=== PATIENT | male | born 1985 | race African-American/Black ===

== ENCOUNTER 2018-04-26 15:35 | Inpatient (IN) | payer OTHER ==
--- NOTE | 2018-04-26 16:09 | RAD ---
PORTABLE CHEST ONE VIEW: 04/26/18 at 4 p.m. HISTORY: Nausea, vomiting, hyperglycemia. FINDINGS: Comparison is made with exam of 12/05/15. The heart size is normal. The lungs are expanded without focal areas of consolidation, pneumothoraces , marianela pulmonary edema or pleural effusions. IMPRESSION: No acute process. POS: [facility]
[2018-04-26 16:47] LABS: Anion Gap 37 mmol/L (10-20); BUN (Urea Nitrogen) 43 mg/dL (8.9-20.6); Calc. Creatinine Clearance 0 mL/min (70-130); Calcium 10.2 mg/dL (7.8-10.44); Carbon Dioxide 18 mmol/L (22-29); Chloride 75 mmol/L (98-107); Estimated GFR-MDRD 24; Potassium 4.9 mmol/L (3.5-5.1); Sodium 125 mmol/L (136-145)
[2018-04-26 16:54] LABS: Glucose 1275 mg/dL (70-105)
[2018-04-26 16:59] LABS: Osmolality, Serum 367 mOsm/kg (280-295)
[2018-04-26] MEDS ORDERED: Insulin Regular 100 units/100 ml in NS IVPB SCH (18:00)
[2018-04-26] MEDS ORDERED: NS 0.9% w/ 20 MEQ KCL 1,000 ML IV SCH (18:00)
[2018-04-26 20:39] LABS: Anion Gap 30 mmol/L (10-20); BUN (Urea Nitrogen) 44 mg/dL (8.9-20.6); Calc. Creatinine Clearance 0 mL/min (70-130); Carbon Dioxide 22 mmol/L (22-29); Chloride 80 mmol/L (98-107); Estimated GFR-MDRD 26; Potassium 3.8 mmol/L (3.5-5.1); Sodium 128 mmol/L (136-145)
[2018-04-26 20:41] LABS: Glucose 1072 mg/dL (70-105); Troponin I Less than 0.010 ng/mL (< 0.028)
[2018-04-26] MEDS ORDERED: Dextrose 5% in Water 1,000 ML IV PRN (21:24)
[2018-04-26] MEDS ORDERED: Dextrose 50% Abboject 50 ML SYRINGE IVP PRN (21:24)
[2018-04-26] MEDS ORDERED: NS 0.9% w/ 20 MEQ KCL 1,000 ML IV PRN (21:37)
[2018-04-26] MEDS ORDERED: Sodium Chloride 0.9% 1,000 ML IV PRN ×4 (21:37)
[2018-04-26] MEDS ORDERED: Ondansetron ODT 4 MG TAB PO PRN (21:37)
[2018-04-26] MEDS ORDERED: hydrALAZINE 20 MG/ML VIAL SLOW IVP PRN (21:37)
[2018-04-26] MEDS ORDERED: Dextrose 5 %-0.45 % NaCl 1,000 ML IV PRN (21:37)
[2018-04-26] MEDS ORDERED: CCU Electrolyte Replacement 1 EACH IVPB SCH (21:37)
[2018-04-26] MEDS ORDERED: D5 1/2 NS w/20 mEq KCL 1,000 ML IV PRN (21:37)
[2018-04-26] MEDS ORDERED: Potassium Chloride 40 MEQ in Premix Bag 1 BAG IVPB PRN (21:51)
[2018-04-26] MEDS ORDERED: Potassium Phosphate 15 MMOL in Sodium Chloride 0.9% 250 ML 250 ML IV PRN (21:51)
[2018-04-26] MEDS ORDERED: Magnesium Oxide 400 MG TAB PO PRN ×2 (21:51)
[2018-04-26] MEDS ORDERED: Magnesium 2 GM/NS 0.9% 100 ML 2 GM in Premix Bag 1 BAG IVPB PRN (21:51)
[2018-04-26] MEDS ORDERED: Potassium Phosphate 12 MMOL in Sodium Chloride 0.9% 250 ML 250 ML IV PRN (21:51)
[2018-04-26] MEDS ORDERED: Potassium Chloride 40 MEQ in Sodium Chloride 0.9% 250 ML 250 ML IVPB PRN (21:51)
[2018-04-26] MEDS ORDERED: Potassium Chloride 20 MEQ TAB PO PRN (21:51)
[2018-04-26] MEDS ORDERED: CCU ELECTROLYTE REPLACEMENT PROTOCOL FS PRN (21:51)
[2018-04-26] MEDS ORDERED: Potassium Phosphate 9 MMOL in Sodium Chloride 0.9% 100 ML IVPB PRN (21:51)
[2018-04-26] MEDS ORDERED: Famotidine/PF 20 mg/2ml Vial SLOW IVP SCH (22:00)
[2018-04-26 22:35] LABS: Anion Gap 35 mmol/L (10-20); BUN (Urea Nitrogen) 44 mg/dL (8.9-20.6); Calc. Creatinine Clearance 0 mL/min (70-130); Calcium 9.8 mg/dL (7.8-10.44); Carbon Dioxide 16 mmol/L (22-29); Chloride 83 mmol/L (98-107); Estimated GFR-MDRD 27; Potassium 4.9 mmol/L (3.5-5.1); Sodium 129 mmol/L (136-145)
[2018-04-26 22:40] LABS: Glucose 928 mg/dL (70-105)
[2018-04-26 22:47] LABS: Troponin I Less than 0.010 ng/mL (< 0.028)
[2018-04-26 23:14] LABS: Base Excess (BEa) 0.5 mEq/L (-2.0 to +3.0); CO2 Tension 44.7 mmHg (35.0-45.0); Calcium, Ionized 1.19 mmol/L (1.12-1.30); Carboxyhemoglobin (COHb) 1.3 gm% (0.0-3.0); Hemoglobin (Hb) 16.7 g/dL (14.0-18.0); O2 Tension (PaO2) 68.6 mmHg (80.0-100.0); Potassium - ABG Lab 3.55 mmol/L (3.70-5.30); pH, Arterial 7.38 (7.35-7.45)
[2018-04-26 23:18] LABS: ALV-art Gradient 25.255 (0-20); Puncture Site RRADIAL
[2018-04-27] MEDS: NS 0.9% w/ 20 MEQ KCL 1,000 ML IV PRN ×3 (00:36→08:59)
--- NOTE | 2018-04-27 00:44 | HP ---
PRIMARY CARE PROVIDER: Dr. Shirley Bianchi at [facility], [place], [place]. CHIEF COMPLAINT: Nausea, vomiting, and abdominal pain. HISTORY OF PRESENT ILLNESS: This is a 33-year-old male, who resides at [facility], nonambulatory with morbid obesity, presenting with nausea, vomiting, abdominal pain, and generalized weakness. The patient states he did notice some diarrhea over the last 3 to 4 days and was treated with oral medication without specific relief. The patient also admitted to abdominal pain with emesis that showed coffee-ground substance x1. Due to patient's comorbid status and persistent symptoms, the patient was evaluated including Accu-Cheks show a level over 1200. The patient denies any known history of diabetes mellitus or treatment for this in the past. The patient was noted to be admitted to [facility] in 2016 for lower extremity cellulitis with associated sepsis. However, review of electronic medical record shows no evidence of hyperglycemia during that visit. The patient states he has been compliant with his chronic medication regimen as his day is structured living in a [facility]. The patient states he is nonambulatory and needs 100% assistance with turning hygiene and meals. The patient denied any specific fever, chills, cough, or congestion. In the emergency room, the patient underwent general evaluation with screening metabolic survey showing glucose of 1275 with a creatinine of 3.53, serum osmolality of 367, and beta hydroxybutyrate level of 8.75. The patient was placed on IV fluids and initiated on a insulin infusion for hyperosmolar syndrome and likely DKA. PAST MEDICAL HISTORY: 1. Severe morbid obesity. 2. Chronic venous stasis and edema of the lower extremities. 3. History of sepsis. 4. Deconditioning and nonambulatory status. 5. Chronic normocytic anemia. PAST SURGICAL HISTORY: Reviewed and negative. CURRENT MEDICATIONS: 1. Spironolactone 50 mg p.o. daily. 2. BuSpar 10 mg p.o. b.i.d. 3. Fluoxetine 20 mg p.o. daily. 4. Lasix 60 mg p.o. b.i.d. 5. Magnesium oxide 400 mg p.o. b.i.d. 6. Metolazone 5 mg p.o. daily. 7. Potassium chloride 20 mEq p.o. b.i.d. 8. Synthroid 25 mcg p.o. daily. ALLERGIES: NO KNOWN DRUG ALLERGIES. FAMILY HISTORY: Positive for diabetes mellitus in patient's father. SOCIAL HISTORY: The patient resides at [facility] in [place], [place]. No current alcohol, tobacco, or illicit drug use. Nonambulatory status. REVIEW OF SYSTEMS: CONSTITUTIONAL: Negative for weight loss or gain, ability to conduct usual activities. SKIN: Negative for rash, itching. EYES: Negative for double vision, pain. ENT/MOUTH: Negative for nose bleeding, neck stiffness, pain, tenderness. CARDIOVASCULAR: Negative for palpitations, dyspnea on exertion, orthopnea. RESPIRATORY: Negative for shortness of breath, wheezing, cough, hemoptysis, fever or night sweats. GASTROINTESTINAL: Negative for poor appetite, abdominal pain, heartburn, nausea, vomiting, constipation, or diarrhea. GENITOURINARY: Negative for urgency, frequency, dysuria, nocturia. MUSCULOSKELETAL: Negative for pain, swelling. NEUROLOGIC/PSYCHIATRIC: Negative for anxiety, depression. ALLERGY/IMMUNOLOGIC: Negative for skin rash, bleeding tendency. Otherwise negative except as stated per HPI. PHYSICAL EXAMINATION: VITAL SIGNS: On admission, blood pressure 148/89, pulse 116, temperature 97.7 degrees Fahrenheit, respiratory rate 15, O2 saturation 95% on room air. GENERAL APPEARANCE: This is a morbidly obese, 33-year-old male, lethargic, but answers questions, in mild distress. HEENT: Pupils are equal, round, and reactive to light and accommodation. Extraocular muscles are intact. No scleral icterus. No conjunctival injection. Nares patent. OP is clear. Oral mucosa dry appearing. NECK: Supple. No cervical adenopathy. No thyromegaly. No carotid bruits. No JVD appreciated. Cervical spine with full active and passive range of motion. No meningeal signs appreciated. CHEST: Diminished breath sounds in the bases bilaterally. CARDIOVASCULAR: S1 and S2 without noted murmur, rub, or gallop. Positive tachycardia. ABDOMEN: Obese. Landmarks are difficult to palpate due to patient's body habitus. No rebound or guarding noted. No gross focal mass appreciated. EXTREMITIES: Bilateral nonpitting edema with chronic lymphedema and leathery changes to the skin. Pulses palpable at the dorsalis pedis and posterior tibial arteries. NEUROLOGIC: Cranial nerves 2 through 12 were grossly intact. No focal or lateralizing signs appreciated. The patient is not observed ambulatory. Answers questions appropriately. PERTINENT LAB AND X-RAY FINDINGS: Sodium 125, potassium 4.9, chloride 75, CO2 of 18, anion gap 37, BUN 43, creatinine 3.53, estimated GFR 24, glucose 1275. Serum osmolality 367, calcium 10.2. Troponin I 0.010. Beta-hydroxybutyrate level 8.75. CBC showed white blood cell count of 7.5, hemoglobin 16, hematocrit 51, platelet count 333 with 83% neutrophils. Gastric Hemoccult positive x1. Urinalysis showed greater than 1000 of glucose, 40 ketones, specific gravity less than 1.005. EKG dated 04/26/2018, by my interpretation shows sinus tachycardia with heart rates in the 110s. Normal R-wave progression noted in precordial leads. Normal axis. No acute ST-T wave changes appreciated. ASSESSMENT AND PLAN: 1. Diabetic ketoacidosis. The patient will be admitted to the critical care unit. We will continue diabetic ketoacidosis protocol. Continue aggressive IV fluid replacement and hydration. Continue insulin infusion and monitor serial Accu-Cheks q.1 hour per protocol. No current evidence to suggest underlying infectious process. Check A1c level in the a.m. 2. Acute kidney injury. Suspect multifactorial given the patient's presentation and severe dehydration. We will continue IV fluids as outlined previously in #1. Avoid nephrotoxic agents and limit contrast exposure. Repeat creatinine in the a.m. 3. Hyponatremia. Suspect this is secondary to pseudohyponatremia in the context of severe hyperglycemia. Continue normal saline infusion and repeat sodium level in the a.m. Anticipate correction with correction of hyperglycemia. 4. Severe morbid obesity. We will continue general supportive management. Low air loss mattress to prevent skin breakdown. Turning protocol. 5. Chronic lymphedema. Continue general supportive management with wound care consult for local skin care. 6. Prophylaxis. Lovenox 30 mg subcutaneously daily. Protonix 40 mg IV. Pepcid 20 mg IV q.12 hours. 7. Code status is full. Surrogate medical decision maker is patient's mother. Job ID: [id number]
[2018-04-27 01:18] VITALS: BMI 92.2
[2018-04-27 01:30] LABS: Glucose 813 mg/dL (70-105)
[2018-04-27 03:37] LABS: Hemoglobin A1c 12.8 % (4.0-6.0)
[2018-04-27 03:43] LABS: Anion Gap 27 mmol/L (10-20); BUN (Urea Nitrogen) 43 mg/dL (8.9-20.6); Calc. Creatinine Clearance 166 mL/min (70-130); Calcium 10.1 mg/dL (7.8-10.44); Carbon Dioxide 26 mmol/L (22-29); Chloride 88 mmol/L (98-107); Estimated GFR-MDRD 32; Potassium 3.8 mmol/L (3.5-5.1); Sodium 137 mmol/L (136-145)
[2018-04-27 03:48] LABS: Glucose 697 mg/dL (70-105)
[2018-04-27 05:42] LABS: Glucose 574 mg/dL (70-105)
[2018-04-27] MEDS: Enoxaparin Sodium 30 MG/0.3 ML SYRINGE SC SCH (08:34)
[2018-04-27 09:02] LABS: Anion Gap 21 mmol/L (10-20); BUN (Urea Nitrogen) 42 mg/dL (8.9-20.6); Calc. Creatinine Clearance 195 mL/min (70-130); Calcium 10.2 mg/dL (7.8-10.44); Carbon Dioxide 27 mmol/L (22-29); Chloride 97 mmol/L (98-107); Estimated GFR-MDRD 39; Glucose 359 mg/dL (70-105); Magnesium 2.8 mg/dL (1.6-2.6); Potassium 3.2 mmol/L (3.5-5.1); Sodium 142 mmol/L (136-145)
[2018-04-27 09:08] LABS: Phosphorus 1.1 mg/dL (2.3-4.7)
[2018-04-27 14:31] LABS: Anion Gap 19 mmol/L (10-20); BUN (Urea Nitrogen) 39 mg/dL (8.9-20.6); Calc. Creatinine Clearance 214 mL/min (70-130); Calcium 9.9 mg/dL (7.8-10.44); Carbon Dioxide 30 mmol/L (22-29); Chloride 98 mmol/L (98-107); Estimated GFR-MDRD 43; Glucose 185 mg/dL (70-105); Sodium 144 mmol/L (136-145)
[2018-04-27] MEDS ORDERED: Dextrose 5% in Water 1,000 ML IV PRN (14:54)
[2018-04-27] MEDS ORDERED: Dextrose 50% Abboject 50 ML SYRINGE SLOW IVP PRN (14:54)
--- NOTE | 2018-04-27 14:58 | PDOC.PN ---
- Subjective Encounter Start Date: 04/27/18 Encounter Start Time: 14:56 Subjective: wants to drink but has been having vomiting w water earlier - Objective Resuscitation Status - Order Detail: 04/26/18 17:57 Resuscitation Status Routine Resuscitation Status: FULL: Full Resuscitation MAR Reviewed: Yes Vital Signs & Weight: Vital Signs (12 hours) Temp Pulse Ox 04/27/18 09:12 98 04/27/18 08:00 98.4 F 100 04/27/18 06:00 98.2 F Weight Weight 679 lb 14.489 oz Most Recent Monitor Data Heart Rate from ECG 109 NIBP 100/84 NIBP BP-Mean 89 Respiration from ECG 19 SpO2 93 I&O: 04/26/18 04/27/18 04/28/18 06:59 06:59 06:59 Intake Total 1861 360 Output Total 1870 400 Balance -9 -40 Result Diagrams: 04/27/18 14:12 Additional Labs: Accuchecks 04/27/18 04/27/18 04/27/18 14:04 13:03 12:06 POC Glucose 240 H 262 H 197 H 04/27/18 04/27/18 04/27/18 11:02 10:09 09:07 POC Glucose 257 H 268 H 314 H 04/27/18 04/27/18 08:05 07:09 POC Glucose 403 H 469 H Laboratory Tests 04/26/18 04/26/18 04/26/18 16:25 16:25 16:25 Anion Gap 37 H Creatinine 3.53 H Troponin I Less than 0.010 B-Hydroxybutyrate 8.75 H 04/26/18 04/26/18 04/26/18 20:08 20:08 22:06 Anion Gap 30 H Creatinine 3.30 H Troponin I Less than 0.010 Less than 0.010 B-Hydroxybutyrate 04/26/18 04/26/18 04/27/18 22:13 22:13 02:59 Anion Gap 35 H 27 H Creatinine 3.24 H 2.79 H Troponin I B-Hydroxybutyrate 6.65 H 04/27/18 02:59 Anion Gap Creatinine Troponin I B-Hydroxybutyrate 3.73 H Phys Exam - Physical Examination Constitutional: NAD HEENT: PERRLA, moist MMs, sclera anicteric, oral pharynx no lesions Neck: no nodes, no JVD, supple, full ROM Respiratory: no wheezing, no rales, no rhonchi, clear to auscultation bilateral Cardiovascular: RRR, no significant murmur, no rub Gastrointestinal: soft, non-tender, no distention, positive bowel sounds Musculoskeletal: no edema, pulses present Neurological: non-focal, normal sensation, moves all 4 limbs Psychiatric: normal affect, A&O x 3 Skin: no rash Dx/Plan (1) DKA (diabetic ketoacidoses) Code(s): E13.10 - OTH DIABETES MELLITUS WITH KETOACIDOSIS WITHOUT COMA Status : Acute (2) Uncontrolled diabetes mellitus Code(s): E11.65 - TYPE 2 DIABETES MELLITUS WITH HYPERGLYCEMIA Status: Acute (3) Morbid obesity with BMI of 50.0-59.9, adult Code(s): E66.01 - MORBID (SEVERE) OBESITY DUE TO EXCESS CALORIES; Z68.43 - BODY MASS INDEX (BMI) 50-59.9, ADULT Status: Chronic (4) Hypokalemia Code(s): E87.6 - HYPOKALEMIA Status: Acute (5) HTN (hypertension) Code(s): I10 - ESSENTIAL (PRIMARY) HYPERTENSION Status: Chronic Comment: controlled - Plan DVT proph w/SCDs repeat labs show closed AG.start Long acting Insulin and ISS. -: Pt w life thretening morbid obesity,hyperglycemia & bed bound status -: restart Home meds.multiple diuretics for some reason -: monitor potassium and Mag/phos.replace & recheck -: Transfer to [facility] * . Review of Systems - Review of Systems Constitutional: weakness, malaise. negative: fever, chills, sweats, other ENT: negative: Ear Pain, Ear Discharge, Nose Pain, Nose Discharge, Nose Congestion, Mouth Pain, Mouth Swelling, Throat Pain, Throat Swelling, Other Respiratory: negative: Cough, Dry, Shortness of Breath, Hemoptysis, SOB with Excertion, Pleuritic Pain, Sputum, Wheezing Cardiovascular: negative: chest pain, palpitations, orthopnea, paroxysmal nocturnal dyspnea, edema, light headedness, other Gastrointestinal: negative: Nausea, Vomiting, Abdominal Pain, Diarrhea, Constipation, Melena, Hematochezia, Other Genitourinary: negative: Dysuria, Frequency, Incontinence, Hematuria, Retention , Other Musculoskeletal: negative: Neck Pain, Shoulder Pain, Arm Pain, Back Pain, Hand Pain, Leg Pain, Foot Pain, Other Neurological: negative: Weakness, Numbness, Incoordination, Change in Speech, Confusion, Seizures, Other - Medications/Allergies Allergies/Adverse Reactions: Allergies Allergy/AdvReac Type Severity Reaction Status Date / Time No Known Drug Allergies Allergy Verified 04/27/18 01:36 Medications: Current Medications Acetaminophen (Tylenol) 1,000 mg PO Q6H PRN PRN Reason: Mild Pain (1-3) Buspirone HCl (Buspar) 10 mg PO BID [facility] Dextrose/Water (Dextrose 50%) 25 gm IVP PRN PRN PRN Reason: HYPOGLYCEMIA PROTOCOL Dextrose/Water (Dextrose 50%) 25 gm SLOW IVP PRN PRN PRN Reason: Hypoglycemia Enoxaparin Sodium (Lovenox) 30 mg SC 0900 [facility] Last Admin: 04/27/18 08:34 Dose: 30 mg Famotidine (Pepcid) 20 mg SLOW IVP QPM [facility] Fluoxetine HCl (Prozac) 20 mg PO DAILY [facility] Furosemide (Lasix) 60 mg PO BID [facility] Glucagon (Glucagon) 1 mg IM PRN PRN PRN Reason: HYPOGLYCEMIA PROTOCOL Glucagon (Glucagon) 1 mg IM PRN PRN PRN Reason: Hypoglycemia Hydralazine HCl (Apresoline) 10 mg SLOW IVP Q4H PRN PRN Reason: SBP > 180 and HR < 70 Dextrose/Water (D5w) 1,000 mls @ 0 mls/hr IV INF PRN PRN Reason: HYPOGLYCEMIA PROTOCOL Dextrose/Sodium Chloride (D5 1/2 Ns) 1,000 mls @ 250 mls/hr IV .Q4H PRN; Protocol PRN Reason: Step 4 of DKA Protocol Potassium Chloride/Dextrose/Sod Cl (D5 1/2 Ns W/20 Meq Kcl) 1,000 mls @ 250 mls /hr IV .Q4H PRN; Protocol PRN Reason: Step 4 of DKA Protocol Last Admin: 04/27/18 12:09 Dose: 1,000 mls Insulin Human Regular 100 (units/ Sodium Chloride) 101 mls @ 0 mls/hr IVPB INF [facility]; Protocol Last Admin: 04/27/18 07:34 Dose: 101 mls Sodium Chloride (Normal Saline 0.9%) 1,000 mls @ 500 mls/hr IV .Q2H PRN; Protocol PRN Reason: Step 1 of DKA Protocol Sodium Chloride (Normal Saline 0.9%) 1,000 mls @ 1,000 mls/hr IV .Q1H PRN; Protocol PRN Reason: Step 1 of DKA Protocol Sodium Chloride (Normal Saline 0.9%) 1,000 mls @ 250 mls/hr IV .Q4H PRN; Protocol PRN Reason: SEE STEP 3 OF DKA PROTOCOL Sodium Chloride (Normal Saline 0.9%) 1,000 mls @ 500 mls/hr IV .Q2H PRN; Protocol PRN Reason: Step 2 of DKA Protocol Potassium Chloride/Sodium Chloride (Ns 0.9% W/ 20 Meq Kcl) 1,000 mls @ 500 mls/ hr IV .Q2H PRN; Protocol PRN Reason: Step 2 of DKA Protocol Potassium Chloride/Sodium Chloride (Ns 0.9% W/ 20 Meq Kcl) 1,000 mls @ 250 mls/ hr IV .Q4H PRN; Protocol PRN Reason: SEE STEP 3 OF DKA PROTOCOL Last Admin: 04/27/18 08:59 Dose: 1,000 mls Potassium Chloride 40 meq/ (Sodium Chloride) 270 mls @ 135 mls/hr IVPB ASDIR PRN PRN Reason: FOR SERUM K+ 2.5 - 3.5 Potassium Chloride 40 meq/ (Device) 100 mls @ 50 mls/hr IVPB ASDIR PRN PRN Reason: FOR SERUM K+ 2.5 - 3.5 Magnesium Sulfate 1 gm/ Sodium (Chloride) 102 mls @ 102 mls/hr IV PRN PRN PRN Reason: MAG LEVEL 1.4 - 2.0 Magnesium Sulfate 2 gm/ Device 100 mls @ 100 mls/hr IVPB ASDIR PRN PRN Reason: MAGNESIUM < 1.4 Potassium Phosphate 9 mmol/ (Sodium Chloride) 103 mls @ 25.75 mls/hr IVPB ASDIR PRN PRN Reason: Phosphate 1.0-1.8 Last Admin: 04/27/18 12:09 Dose: 103 mls Potassium Phosphate 12 mmol/ (Sodium Chloride) 254 mls @ 63.5 mls/hr IV ASDIR PRN PRN Reason: Serum phosphate 0.5-0.9 Potassium Phosphate 15 mmol/ (Sodium Chloride) 255 mls @ 63.75 mls/hr IV ASDIR PRN PRN Reason: Serum Phos < 0.5 Sodium Chloride (Normal Saline 0.9%) 1,000 mls @ 75 mls/hr IV .[id number] [facility] Insulin Glargine 20 units/ (Miscellaneous Medication) 0.2 mls @ 0 mls/hr SC HS [facility] Insulin Glargine 20 units/ (Miscellaneous Medication) 0.2 mls @ 0 mls/hr SC QAM [facility] Dextrose/Water (D5w) 1,000 mls @ 0 mls/hr IV .Q0M PRN PRN Reason: Hypoglycemia Insulin Human Lispro (Humalog) 0 units SC .AGGRESSIVE SLIDING PRN PRN Reason: Aggressive Correctional Scale Insulin Human Lispro (Humalog) 0 units SC .BEDTIME SLIDING SC PRN PRN Reason: Bedtime Correctional Scale Levothyroxine Sodium (Synthroid) 25 mcg PO DAILY [facility] Magnesium Oxide (Magnesium Oxide) 400 mg PO BIDPRN PRN PRN Reason: FOR SERUM MAG 1.4 - 2.0 Magnesium Oxide (Magnesium Oxide) 800 mg PO PRN PRN PRN Reason: FOR SERUM MAG < 1.4 Metolazone (Zaroxolyn) 5 mg PO DAILY [facility] Miscellaneous Medication (Ccu Electrolyte Replacement) 1 each IVPB ONE [facility] Stop: 05/26/18 21:38 Miscellaneous Medication (Phos-Nak) 1 pkt PO TIDPRN PRN PRN Reason: FOR PHOS LEVEL 1.0 - 1.8 Miscellaneous Medication (Phos-Nak) 2 pkt PO TIDPRN PRN PRN Reason: FOR PHOS LEVEL 0.5 - 1.0 Ccu Electrolyte (Replacement Protocol) 0 each FS PRN PRN PRN Reason: FOR ELECTROLYTE REPLACEMENT Non-Formulary Medication (Spironolactone [Spironolactone]) 50 mg PO DAILY [facility] Ondansetron HCl (Zofran Odt) 4 mg PO Q6H PRN PRN Reason: Nausea/Vomiting Ondansetron HCl (Zofran) 4 mg IVP Q6H PRN PRN Reason: Nausea/Vomiting Potassium Chloride (K-Dur) 40 meq PO ASDIR PRN PRN Reason: FOR SERUM K+ 2.5 - 3.5 Potassium Chloride (Klor-Con) 40 meq PER TUBE ASDIR PRN PRN Reason: FOR SERUM K+ 2.5-3.5 Sodium Chloride (Flush - Normal Saline) 10 ml IVF Q12HR [facility] Last Admin: 04/27/18 08:34 Dose: 10 ml Sodium Chloride (Flush - Normal Saline) 10 ml IVF PRN PRN PRN Reason: Saline Flush
[2018-04-27] MEDS: Sodium Chloride 0.9% 1,000 ML IV SCH (16:34)
[2018-04-27] MEDS: Insulin Glargine 20 UNITS in Pre-Filled Syringe 1 EACH SC SCH ×2 (16:52→20:24)
[2018-04-27] MEDS: Ondansetron PF 4 MG/2 ML Vial IVP PRN (17:18)
[2018-04-27] MEDS: busPIRone HCl 10 MG TAB PO SCH (20:23)
[2018-04-27] MEDS: Famotidine/PF 20 mg/2ml Vial SLOW IVP SCH (20:24)
[2018-04-27] MEDS ORDERED: Furosemide 40 MG TAB PO SCH (21:00)
[2018-04-28] MEDS: HumaLOG 300 UNITS/3 ML VIAL SC PRN ×3 (00:49→21:49)
--- NOTE | 2018-04-28 02:09 | CON ---
DATE OF CONSULTATION: HISTORY OF PRESENT ILLNESS: Mr. Fulton is a 33-year-old male. He says he has never been told he had diabetes. Apparently, he lives in a retirement in [place]. He presented with nausea, vomiting, and abdominal pain. He was diagnosed as having hyperosmolar state secondary to new onset diabetes. He is so obese, he is living in a retirement at 33. PAST MEDICAL HISTORY: Otherwise, unremarkable. MEDICATIONS: Prior to admission, he was on, 1. Aldactone. 2. BuSpar. 3. Fluoxetine. 4. Lasix twice a day. 5. Magnesium. 6. Metolazone. 7. Potassium. 8. Synthroid. SOCIAL HISTORY: Nonsmoker and nondrinker. FAMILY HISTORY: There is a family history of diabetes. ALLERGIES: NONE. REVIEW OF SYSTEMS: Otherwise, negative 10 point. PHYSICAL EXAMINATION: VITAL SIGNS: He is almost 700 pounds and 6 feet tall. He is afebrile. Heart rate is 115, respiratory is 21, oximetry is 99 on room air. Blood pressure is 168/87. HEENT: Pupils reactive. Sclerae anicteric. NECK: Supple. LUNGS: Clear. HEART: Regular rhythm. S1 and S2 are distant. ABDOMEN: Soft, massive. EXTREMITIES: Massive. LABORATORY DATA: PH 7.3, pCO2 of 44, pO2 of 68. Sodium 144, potassium 3, chloride 98, bicarb 30, BUN 39, creatinine 2.16. Glucoses are down in the 200 range, it started at 1275. IMPRESSION: Hyperosmolar state secondary to new onset type 2 diabetes. He really should be taken off his insulin drip. Glucoses come down by a 1000 since yesterday and he certainly empirically could end up with some cerebral edema with rapid correction. He needs hydration. I suspect the combination of metolazone, Lasix, and Aldactone has led to his elevated creatinine. I suspect with gentle ongoing hydration, his creatinine will return to normal. He is actually stable to move out of Intermediate Care unit now. He was moved out of the Critical Care unit this morning. TIME SPENT: This is a 70-minute consult, 50% of the time spent on the unit coordinating care. Job ID: [id number]
[2018-04-28 03:56] LABS: Anion Gap 29 mmol/L (10-20); BUN (Urea Nitrogen) 39 mg/dL (8.9-20.6); Calc. Creatinine Clearance 181 mL/min (70-130); Carbon Dioxide 18 mmol/L (22-29); Chloride 92 mmol/L (98-107); Estimated GFR-MDRD 35; Glucose 673 mg/dL (70-105); Magnesium 2.8 mg/dL (1.6-2.6); Phosphorus 2.3 mg/dL (2.3-4.7); Potassium 4.2 mmol/L (3.5-5.1); Sodium 135 mmol/L (136-145)
[2018-04-28] MEDS: Ondansetron PF 4 MG/2 ML Vial IVP PRN (03:57)
[2018-04-28] MEDS: Sodium Chloride 0.9% 1,000 ML IV SCH ×2 (05:50→21:46)
[2018-04-28] MEDS: Levothyroxine Sodium 25 MCG TAB PO SCH (06:26)
[2018-04-28 06:33] LABS: Lactic Acid 1.9 mmol/L (0.5-2.2)
[2018-04-28 06:42] LABS: Band 8 % (5-11); Hemoglobin 14.9 g/dL (14.0-18.0); Lymphocytes 7 % (21-51); MDiff Complete? YES; Mean Corpuscular HGB CONC 32.7 g/dL (32.0-36.0); Mean Corpuscular Hemoglobin 30.1 pg (27.0-31.0); Mean Corpuscular Volume 92.1 fL (78.0-98.0); Mean Platelet Volume 10.8 fL (7.4-10.4); Monocytes 4 % (0-10); Neutrophil 81 % (42-75); PLT Morphology Comment Appears Adequate; Platelet Count 226 thou/uL (130-400); RBC Distribution Width 12.5 % (11.5-14.5); Red Blood Cell (RBC) Count 4.93 mill/uL (4.70-6.10); White Blood Cell (WBC) Count 13.8 thou/uL (4.8-10.8)
[2018-04-28 06:56] LABS: Anion Gap 26 mmol/L (10-20); BUN (Urea Nitrogen) 39 mg/dL (8.9-20.6); Calc. Creatinine Clearance 181 mL/min (70-130); Calcium 9.3 mg/dL (7.8-10.44); Carbon Dioxide 21 mmol/L (22-29); Chloride 92 mmol/L (98-107); Estimated GFR-MDRD 36; Potassium 3.3 mmol/L (3.5-5.1); Sodium 136 mmol/L (136-145)
[2018-04-28 06:59] LABS: Glucose 639 mg/dL (70-105)
[2018-04-28] MEDS ORDERED: Metolazone 5 MG TAB PO SCH (09:00)
[2018-04-28] MEDS ORDERED: Spironolactone 25 MG TAB PO SCH (09:00)
[2018-04-28] MEDS: Insulin Glargine 20 UNITS in Pre-Filled Syringe 1 EACH SC SCH ×3 (09:26→21:47)
[2018-04-28] MEDS: Enoxaparin Sodium 30 MG/0.3 ML SYRINGE SC SCH (09:36)
[2018-04-28] MEDS: busPIRone HCl 10 MG TAB PO SCH ×2 (09:36→21:37)
[2018-04-28] MEDS: FLUoxetine HCl 20 MG CAP PO SCH (09:37)
[2018-04-28] MEDS ORDERED: Nystatin Powder 15 GM BOT TOP PRN (09:47)
--- NOTE | 2018-04-28 13:09 | PDOC.PN ---
- Subjective Encounter Start Date: 04/28/18 Encounter Start Time: 13:08 Subjective: c/o abd pain and wants to eat -: extremly high blood sugar requiring insulin drip last night - Objective Resuscitation Status - Order Detail: 04/26/18 17:57 Resuscitation Status Routine Resuscitation Status: FULL: Full Resuscitation MAR Reviewed: Yes Vital Signs & Weight: Vital Signs (12 hours) Temp Pulse Resp BP Pulse Ox 04/28/18 11:43 97.0 F L 112/88 04/28/18 07:45 98 04/28/18 07:19 97.1 F L 108 H 18 121/86 04/28/18 04:14 97.4 F L 109 H 24 H 131/71 100 Weight Weight 679 lb 14.489 oz Most Recent Monitor Data Heart Rate from ECG 109 NIBP 100/84 NIBP BP-Mean 89 Respiration from ECG 19 SpO2 93 I&O: 04/27/18 04/28/18 04/29/18 06:59 06:59 06:59 Intake Total 3656 543 5667 Output Total 8105 596 0865 Balance -9 -40 935 Result Diagrams: 04/28/18 06:09 04/28/18 06:07 Additional Labs: Accuchecks 04/28/18 04/28/18 04/28/18 12:21 10:57 10:02 POC Glucose 262 H 201 H 265 H 04/28/18 04/28/18 04/28/18 09:14 08:05 07:25 POC Glucose 317 H 464 H 473 H 04/28/18 04/28/18 04/28/18 06:11 03:48 00:44 POC Glucose Greater than 550 H* Greater than 550 H* Greater than 550 H* 04/27/18 04/27/18 04/27/18 20:06 16:39 14:04 POC Glucose 341 H 203 H 240 H 04/27/18 13:03 POC Glucose 262 H Laboratory Tests 04/26/18 04/26/18 04/26/18 16:25 20:08 22:13 Creatinine 3.53 H 3.30 H 3.24 H 04/27/18 04/27/18 04/27/18 02:59 08:32 14:12 Creatinine 2.79 H 2.37 H 2.16 H 04/28/18 04/28/18 02:40 06:07 Creatinine 2.56 H 2.55 H Phys Exam - Physical Examination uncomfortable HEENT: PERRLA, moist MMs, sclera anicteric, oral pharynx no lesions Neck: no JVD Respiratory: no wheezing Cardiovascular: RRR Gastrointestinal: soft epigastric tenderness Musculoskeletal: no edema, pulses present Neurological: non-focal, normal sensation, moves all 4 limbs Psychiatric: normal affect, A&O x 3 Skin: no rash Dx/Plan (1) DKA (diabetic ketoacidoses) Code(s): E13.10 - OTH DIABETES MELLITUS WITH KETOACIDOSIS WITHOUT COMA Status : Acute Qualifiers: Diabetes mellitus type: type 2 (2) KELTON (acute kidney injury) Code(s): N17.9 - ACUTE KIDNEY FAILURE, UNSPECIFIED Status: Acute (3) Uncontrolled diabetes mellitus Code(s): E11.65 - TYPE 2 DIABETES MELLITUS WITH HYPERGLYCEMIA Status: Acute Qualifiers: Diabetes mellitus type: type 2 Coma presence: without coma (4) Morbid obesity with BMI of 50.0-59.9, adult Code(s): E66.01 - MORBID (SEVERE) OBESITY DUE TO EXCESS CALORIES; Z68.43 - BODY MASS INDEX (BMI) 50-59.9, ADULT Status: Chronic (5) Hypokalemia Code(s): E87.6 - HYPOKALEMIA Status: Acute (6) HTN (hypertension) Code(s): I10 - ESSENTIAL (PRIMARY) HYPERTENSION Status: Chronic Comment: controlled - Plan DVT proph w/SCDs High AG acidosis unclear d/t persistant DKA Vs KELTON -: Blood sugar better. increase lantus and stop drip -: nephro consult for kelton. daily labs -: IVf as still w significant intravascular dehydration d/t hyperglycemia -: Nystatin topical. * .high risk of decompensation due to life threatening obesity. * start diet slowly * cont to hold diuretics Review of Systems - Review of Systems Constitutional: weakness, malaise. negative: fever, chills, sweats, other ENT: negative: Ear Pain, Ear Discharge, Nose Pain, Nose Discharge, Nose Congestion, Mouth Pain, Mouth Swelling, Throat Pain, Throat Swelling, Other Respiratory: negative: Cough, Dry, Shortness of Breath, Hemoptysis, SOB with Excertion, Pleuritic Pain, Sputum, Wheezing Cardiovascular: negative: chest pain, palpitations, orthopnea, paroxysmal nocturnal dyspnea, edema, light headedness, other Gastrointestinal: Abdominal Pain. negative: Nausea, Vomiting, Diarrhea, Constipation, Melena, Hematochezia, Other Genitourinary: negative: Dysuria, Frequency, Incontinence, Hematuria, Retention , Other Musculoskeletal: negative: Neck Pain, Shoulder Pain, Arm Pain, Back Pain, Hand Pain, Leg Pain, Foot Pain, Other Neurological: negative: Weakness, Numbness, Incoordination, Change in Speech, Confusion, Seizures, Other - Medications/Allergies Allergies/Adverse Reactions: Allergies Allergy/AdvReac Type Severity Reaction Status Date / Time No Known Drug Allergies Allergy Verified 04/27/18 01:36 Medications: Current Medications Acetaminophen (Tylenol) 1,000 mg PO Q6H PRN PRN Reason: Mild Pain (1-3) Buspirone HCl (Buspar) 10 mg PO BID [facility] Last Admin: 04/28/18 09:36 Dose: 10 mg Dextrose/Water (Dextrose 50%) 25 gm SLOW IVP PRN PRN PRN Reason: Hypoglycemia Enoxaparin Sodium (Lovenox) 30 mg SC 0900 [facility] Last Admin: 04/28/18 09:36 Dose: 30 mg Famotidine (Pepcid) 20 mg SLOW IVP QPM [facility] Last Admin: 04/27/18 20:24 Dose: 20 mg Fluoxetine HCl (Prozac) 20 mg PO DAILY [facility] Last Admin: 04/28/18 09:37 Dose: 20 mg Glucagon (Glucagon) 1 mg IM PRN PRN PRN Reason: Hypoglycemia Hydralazine HCl (Apresoline) 10 mg SLOW IVP Q4H PRN PRN Reason: SBP > 180 and HR < 70 Dextrose/Sodium Chloride (D5 1/2 Ns) 1,000 mls @ 250 mls/hr IV .Q4H PRN; Protocol PRN Reason: Step 4 of DKA Protocol Potassium Chloride/Dextrose/Sod Cl (D5 1/2 Ns W/20 Meq Kcl) 1,000 mls @ 250 mls /hr IV .Q4H PRN; Protocol PRN Reason: Step 4 of DKA Protocol Last Admin: 04/27/18 12:09 Dose: 1,000 mls Insulin Human Regular 100 (units/ Sodium Chloride) 101 mls @ 0 mls/hr IVPB INF [facility]; Protocol Last Admin: 04/28/18 09:38 Dose: 101 mls Sodium Chloride (Normal Saline 0.9%) 1,000 mls @ 500 mls/hr IV .Q2H PRN; Protocol PRN Reason: Step 1 of DKA Protocol Sodium Chloride (Normal Saline 0.9%) 1,000 mls @ 1,000 mls/hr IV .Q1H PRN; Protocol PRN Reason: Step 1 of DKA Protocol Sodium Chloride (Normal Saline 0.9%) 1,000 mls @ 250 mls/hr IV .Q4H PRN; Protocol PRN Reason: SEE STEP 3 OF DKA PROTOCOL Sodium Chloride (Normal Saline 0.9%) 1,000 mls @ 500 mls/hr IV .Q2H PRN; Protocol PRN Reason: Step 2 of DKA Protocol Potassium Chloride/Sodium Chloride (Ns 0.9% W/ 20 Meq Kcl) 1,000 mls @ 500 mls/ hr IV .Q2H PRN; Protocol PRN Reason: Step 2 of DKA Protocol Last Admin: 04/28/18 02:24 Dose: 1,000 mls Potassium Chloride/Sodium Chloride (Ns 0.9% W/ 20 Meq Kcl) 1,000 mls @ 250 mls/ hr IV .Q4H PRN; Protocol PRN Reason: SEE STEP 3 OF DKA PROTOCOL Last Admin: 04/27/18 08:59 Dose: 1,000 mls Potassium Chloride 40 meq/ (Sodium Chloride) 270 mls @ 135 mls/hr IVPB ASDIR PRN PRN Reason: FOR SERUM K+ 2.5 - 3.5 Potassium Chloride 40 meq/ (Device) 100 mls @ 50 mls/hr IVPB ASDIR PRN PRN Reason: FOR SERUM K+ 2.5 - 3.5 Magnesium Sulfate 1 gm/ Sodium (Chloride) 102 mls @ 102 mls/hr IV PRN PRN PRN Reason: MAG LEVEL 1.4 - 2.0 Magnesium Sulfate 2 gm/ Device 100 mls @ 100 mls/hr IVPB ASDIR PRN PRN Reason: MAGNESIUM < 1.4 Potassium Phosphate 9 mmol/ (Sodium Chloride) 103 mls @ 25.75 mls/hr IVPB ASDIR PRN PRN Reason: Phosphate 1.0-1.8 Last Admin: 04/27/18 12:09 Dose: 103 mls Potassium Phosphate 12 mmol/ (Sodium Chloride) 254 mls @ 63.5 mls/hr IV ASDIR PRN PRN Reason: Serum phosphate 0.5-0.9 Potassium Phosphate 15 mmol/ (Sodium Chloride) 255 mls @ 63.75 mls/hr IV ASDIR PRN PRN Reason: Serum Phos < 0.5 Sodium Chloride (Normal Saline 0.9%) 1,000 mls @ 75 mls/hr IV .[id number] [facility] Last Admin: 04/28/18 05:50 Dose: Not Given Insulin Glargine 20 units/ (Miscellaneous Medication) 0.2 mls @ 0 mls/hr SC HS [facility] Last Admin: 04/27/18 20:24 Dose: 0.2 mls Insulin Glargine 20 units/ (Miscellaneous Medication) 0.2 mls @ 0 mls/[facility] [place] [place] Last Admin: 04/28/18 10:06 Dose: 0.2 mls Dextrose/Water (D5w) 1,000 mls @ 0 mls/hr IV .Q0M PRN PRN Reason: Hypoglycemia Insulin Human Lispro (Humalog) 0 units SC .AGGRESSIVE SLIDING PRN PRN Reason: Aggressive Correctional Scale Last Admin: 04/28/18 00:49 Dose: 13 units Insulin Human Lispro (Humalog) 0 units SC .BEDTIME SLIDING SC PRN PRN Reason: Bedtime Correctional Scale Levothyroxine Sodium (Synthroid) 25 mcg PO 0600 [facility] Last Admin: 04/28/18 06:26 Dose: 25 mcg Magnesium Oxide (Magnesium Oxide) 400 mg PO BIDPRN PRN PRN Reason: FOR SERUM MAG 1.4 - 2.0 Magnesium Oxide (Magnesium Oxide) 800 mg PO PRN PRN PRN Reason: FOR SERUM MAG < 1.4 Miscellaneous Medication (Ccu Electrolyte Replacement) 1 each IVPB ONE [facility] Stop: 05/26/18 21:38 Miscellaneous Medication (Phos-Nak) 1 pkt PO TIDPRN PRN PRN Reason: FOR PHOS LEVEL 1.0 - 1.8 Miscellaneous Medication (Phos-Nak) 2 pkt PO TIDPRN PRN PRN Reason: FOR PHOS LEVEL 0.5 - 1.0 Ccu Electrolyte (Replacement Protocol) 0 each FS PRN PRN PRN Reason: FOR ELECTROLYTE REPLACEMENT Nystatin (Mycostatin Powder) 1 gm TOP BID PRN PRN Reason: Topical Irritations Ondansetron HCl (Zofran Odt) 4 mg PO Q6H PRN PRN Reason: Nausea/Vomiting Ondansetron HCl (Zofran) 4 mg IVP Q6H PRN PRN Reason: Nausea/Vomiting Last Admin: 04/28/18 03:57 Dose: 4 mg Potassium Chloride (K-Dur) 40 meq PO ASDIR PRN PRN Reason: FOR SERUM K+ 2.5 - 3.5 Last Admin: 04/27/18 16:31 Dose: 40 meq Potassium Chloride (Klor-Con) 40 meq PER TUBE ASDIR PRN PRN Reason: FOR SERUM K+ 2.5-3.5 Sodium Chloride (Flush - Normal Saline) 10 ml IVF Q12HR [facility] Last Admin: 04/28/18 09:49 Dose: 10 ml Sodium Chloride (Flush - Normal Saline) 10 ml IVF PRN PRN PRN Reason: Saline Flush
--- NOTE | 2018-04-28 15:50 | PRG ---
DATE OF SERVICE: 04/28/2018 SUBJECTIVE: Mr. Fulton is clinically unchanged. OBJECTIVE: VITAL SIGNS: He is afebrile, heart rate is 108, respiratory rate is 18, blood pressure 121/86. Intake and outputs recorded -40 mL, but his volume infusion is greater than that, I think this is after it. LUNGS: Distant. HEART: Regular rhythm. ABDOMEN: Soft. General surgery is consulted for central line. He is almost 700 pounds and there is no way of central line could be placed in this gentleman. LABORATORY DATA: Sodium is 136, potassium 3.3, chloride 92, bicarb 21, BUN 39, creatinine 2.55, glucose was 639 this morning. IMPRESSION: Hyperosmolar state, type 2 diabetes. PLAN: Push p.o. fluids aggressively and try to get him switched over off the insulin drip. Adding him oral agents may help facilitate control of his diabetes. He does not need diuretics in this setting. Volume contraction will aggravate his hyperglycemia. He could be transferred out of the critical to the intermediate care unit in the morning once he is off the insulin drip. Job ID: [id number]
--- NOTE | 2018-04-28 19:16 | CON ---
DATE OF CONSULTATION: CONSULTING PHYSICIAN: Sudarshan High MD REQUESTING PHYSICIAN: Dr. Martinez. REASON FOR CONSULTATION: Acute kidney injury and severe hyperglycemia. IMPRESSION: 1. Acute kidney injury, this is likely in the context of intravascular depletion/prerenal due to severe hyperglycemia with glycosuria. 2. Hyperosmolar nonketotic hyperglycemic state. 3. Morbid obesity with body mass index of 92. PLAN: 1. To manage this hyperosmolar nonketotic hyperglycemic state, insulin drip is the best modality of treatment. A controlled reduction in the hyperglycemia in this patient with insulin drip will show a controlled reduction in the hyperosmolarity of this patient. 2. The patient will need intravascular repletion. 3. Further management will be dependent on the clinical course. HISTORY OF PRESENT ILLNESS: History is that of 33-year-old jail resident, who was brought in with nausea, vomiting, and abdominal pain, and noted with severe hyperglycemia, blood sugar of over 1200. The patient, in the course of hospitalization, has been noted with elevated creatinine above 2. As a result of this, decision has been taken to involve Renal in the management of this case. The patient has been managed with intermittent insulin drip and subcutaneous insulin with little or no significant success as the blood sugar still remains very labile. I do believe that this patient will require far more than the amount of subcutaneous insulin he is being administered at this point. In any case, for a controlled reduction in hyperosmolarity, insulin drip is a preferred modality of treatment. PAST MEDICAL HISTORY: Significant for morbid obesity, venous stasis, history of sepsis, and diabetes. ALLERGIES: NO KNOWN DRUG ALLERGIES. FAMILY HISTORY: Significant for diabetes. SOCIAL HISTORY: The patient is a jail resident. No alcohol. No tobacco. No illicit drug use. REVIEW OF SYSTEMS: As documented in the body of the history. All the other systems were reviewed and found not to be significantly related to present illness. PHYSICAL EXAMINATION: GENERAL: The patient was found to be morbidly obese, noted with the following vital signs. VITAL SIGNS: Afebrile, temperature 97, pulse 98, and blood pressure 102/88. HEENT: Unremarkable. CARDIOVASCULAR SYSTEM: First and second heart sounds were heard. RESPIRATORY SYSTEM: Clear to auscultation anteriorly with diminished breath sounds due to body habitus. DIGESTIVE SYSTEM: Revealed an obese abdomen. EXTREMITIES: Showed chronic lymphedema. NEUROLOGIC: No lateralizing signs. SUMMARY: A 33-year-old gentleman who presented here with severe hyperosmolar hyperglycemic state. Thank you for this consultation. We will follow with you. Job ID: [id number]
[2018-04-28] MEDS: Famotidine/PF 20 mg/2ml Vial SLOW IVP SCH (21:38)
[2018-04-29] MEDS: HumaLOG 300 UNITS/3 ML VIAL SC PRN ×5 (00:32→20:41)
[2018-04-29] MEDS: Levothyroxine Sodium 25 MCG TAB PO SCH (05:36)
[2018-04-29 06:09] LABS: Anion Gap 23 mmol/L (10-20); BUN (Urea Nitrogen) 32 mg/dL (8.9-20.6); Calc. Creatinine Clearance 212 mL/min (70-130); Calcium 9.3 mg/dL (7.8-10.44); Carbon Dioxide 25 mmol/L (22-29); Chloride 93 mmol/L (98-107); Estimated GFR-MDRD 43; Glucose 453 mg/dL (70-105); Potassium 3.1 mmol/L (3.5-5.1); Sodium 138 mmol/L (136-145)
[2018-04-29] MEDS: Insulin Glargine 20 UNITS in Pre-Filled Syringe 1 EACH SC SCH (08:51)
[2018-04-29] MEDS: busPIRone HCl 10 MG TAB PO SCH ×2 (08:51→20:39)
[2018-04-29] MEDS: FLUoxetine HCl 20 MG CAP PO SCH (08:51)
[2018-04-29] MEDS: Enoxaparin Sodium 30 MG/0.3 ML SYRINGE SC SCH (08:51)
[2018-04-29 10:57] LABS: Base Excess-Venous -1.4 mmol/L (0 (+/- 2.5)); Bicarbonate (HCO3v) 21.3 mmol/L (22.0-29.0); CO2 Tension (PvCO2) 30.9 mmHg (41.0-51.0); Hemoglobin - Calc 18.9 g/dL (12.0-18.0); O2 Tension (PvO2) 64.2 mmHg (35.0-45.0); Potassium 4.3 mmol/L (3.4-4.7); T. Carbon Dioxide 22.3 mmol/L (1.0-85.0); pH (Venous) 7.446 (7.35-7.45); vO2 Saturation-calc 93.4 % (94-98)
--- NOTE | 2018-04-29 12:55 | PRG ---
DATE OF SERVICE: 04/29/2018 Mr. Fulton has no new problems and no new complaints. He is off his insulin drip. He is afebrile, oximetry is in the 90s on room air, blood pressure 138/71, and respiratory rate is 20. Glucoses were still in the 300 to 400 range. These can be slowly controlled. I would consider adding an oral agent. This may decrease his insulin requirements. His renal function will have to be monitored. I suspect a large part of his renal dysfunction is because he was on multiple different diuretics at the [facility] to treat his lower extremity edema. Treating his lower extremity edema and sacrificing kidneys are not in my opinion a reasonable treatment goal. His diuretic should be held for now and probably at discharge. Job ID: [id number]
--- NOTE | 2018-04-29 16:19 | PDOC.PN ---
- Subjective Encounter Start Date: 04/29/18 Encounter Start Time: 16:19 Subjective: no specific new complaints.wants to eat more and more -: c/o abdominal discomfort but better - Objective Resuscitation Status - Order Detail: 04/26/18 17:57 Resuscitation Status Routine Resuscitation Status: FULL: Full Resuscitation MAR Reviewed: Yes Vital Signs & Weight: Vital Signs (12 hours) Temp BP Pulse Ox 04/29/18 11:17 98.4 F 125/76 04/29/18 08:00 98 Weight Weight 679 lb 14.489 oz Most Recent Monitor Data Heart Rate from ECG 109 NIBP 100/84 NIBP BP-Mean 89 Respiration from ECG 19 SpO2 93 I&O: 04/28/18 04/29/18 04/30/18 06:59 06:59 06:59 Intake Total 360 7384 Output Total 400 4050 Balance -40 3334 Result Diagrams: 04/28/18 06:09 04/30/18 04:35 Additional Labs: Accuchecks 04/29/18 04/29/18 04/29/18 10:54 05:36 00:32 POC Glucose 458 H 409 H 437 H 04/28/18 04/28/18 04/28/18 21:36 16:53 05:03 POC Glucose 421 H 349 H Greater than 550 H* 04/28/18 04/28/18 04/26/18 03:07 01:53 21:43 POC Glucose Greater than 550 H* Greater than 550 H* Greater than 550 H* 04/26/18 04/26/18 04/26/18 18:18 16:47 15:41 POC Glucose Greater than 550 H* Greater than 550 H* Greater than 550 H* Microbiology 04/26/18 23:41 Urine voided Urine Culture - Final NO GROWTH AT 36 HOURS 04/28/18 06:09 Venous blood - Neck Blood Culture - Preliminary Specimen has been received and culture in progress. No Growth to date. 04/28/18 06:06 Venous blood - Left Leg Blood Culture - Preliminary Specimen has been received and culture in progress. No Growth to date. Laboratory Tests 04/26/18 04/26/18 04/26/18 16:25 20:08 22:13 Creatinine 3.53 H 3.30 H 3.24 H POC Glucose 04/27/18 04/27/18 04/27/18 02:59 08:32 14:12 Creatinine 2.79 H 2.37 H 2.16 H POC Glucose 04/28/18 04/28/18 04/28/18 02:40 06:07 16:53 Creatinine 2.56 H 2.55 H POC Glucose 349 H 04/28/18 04/29/18 04/29/18 21:36 00:32 04:59 Creatinine 2.18 H POC Glucose 421 H 437 H 04/29/18 05:36 Creatinine POC Glucose 409 H Phys Exam - Physical Examination Constitutional: NAD HEENT: PERRLA, moist MMs, sclera anicteric, oral pharynx no lesions Neck: no nodes, no JVD, supple, full ROM Respiratory: no wheezing, no rales, no rhonchi, clear to auscultation bilateral Cardiovascular: RRR, no significant murmur, no rub Gastrointestinal: soft, non-tender, no distention, positive bowel sounds Musculoskeletal: no edema, pulses present Neurological: non-focal, normal sensation, moves all 4 limbs Psychiatric: normal affect, A&O x 3 Skin: no rash Dx/Plan (1) Uncontrolled diabetes mellitus Code(s): E11.65 - TYPE 2 DIABETES MELLITUS WITH HYPERGLYCEMIA Status: Acute Qualifiers: Diabetes mellitus type: type 2 Coma presence: without coma (2) KELTON (acute kidney injury) Code(s): N17.9 - ACUTE KIDNEY FAILURE, UNSPECIFIED Status: Acute Comment: imroving.avoid Nephrotoxins like Diuretics or metformin (3) DKA (diabetic ketoacidoses) Code(s): E13.10 - OTH DIABETES MELLITUS WITH KETOACIDOSIS WITHOUT COMA Status : Resolved Qualifiers: Diabetes mellitus type: type 2 (4) Morbid obesity with BMI of 50.0-59.9, adult Code(s): E66.01 - MORBID (SEVERE) OBESITY DUE TO EXCESS CALORIES; Z68.43 - BODY MASS INDEX (BMI) 50-59.9, ADULT Status: Chronic (5) Hypokalemia Code(s): E87.6 - HYPOKALEMIA Status: Acute Comment: replace and recheck (6) HTN (hypertension) Code(s): I10 - ESSENTIAL (PRIMARY) HYPERTENSION Status: Chronic Comment: controlled - Plan PT/OT, out of bed/ambulate, DVT proph w/SCDs renal Fx and hy[perglycemia getting better -: change IVF to NS w Kcl.daily labs.avoid nephrotoxins -: feel like he needs to have conversation about bariatric Sx d/t life -: threatening obesity.Pt shows minimal insight into the problem -: will add OT/Pt as he reports that he was able to walk before NH placement * . Review of Systems - Review of Systems Constitutional: weakness, malaise. negative: fever, chills, sweats, other ENT: negative: Ear Pain, Ear Discharge, Nose Pain, Nose Discharge, Nose Congestion, Mouth Pain, Mouth Swelling, Throat Pain, Throat Swelling, Other Cardiovascular: negative: chest pain, palpitations, orthopnea, paroxysmal nocturnal dyspnea, edema, light headedness, other Gastrointestinal: Abdominal Pain. negative: Nausea, Vomiting, Diarrhea, Constipation, Melena, Hematochezia, Other Genitourinary: negative: Dysuria, Frequency, Incontinence, Hematuria, Retention , Other Skin: negative: Rash, Lesions, Velasquez, Bruising, Other Neurological: negative: Weakness, Numbness, Incoordination, Change in Speech, Confusion, Seizures, Other - Medications/Allergies Allergies/Adverse Reactions: Allergies Allergy/AdvReac Type Severity Reaction Status Date / Time No Known Drug Allergies Allergy Verified 04/27/18 01:36 Medications: Current Medications Acetaminophen (Tylenol) 1,000 mg PO Q6H PRN PRN Reason: Mild Pain (1-3) Buspirone HCl (Buspar) 10 mg PO BID [facility] Last Admin: 04/29/18 08:51 Dose: 10 mg Dextrose/Water (Dextrose 50%) 25 gm SLOW IVP PRN PRN PRN Reason: Hypoglycemia Enoxaparin Sodium (Lovenox) 30 mg SC 0900 [facility] Last Admin: 04/29/18 08:51 Dose: 30 mg Famotidine (Pepcid) 20 mg SLOW IVP QPM [facility] Last Admin: 04/28/18 21:38 Dose: 20 mg Fluoxetine HCl (Prozac) 20 mg PO DAILY [facility] Last Admin: 04/29/18 08:51 Dose: 20 mg Glucagon (Glucagon) 1 mg IM PRN PRN PRN Reason: Hypoglycemia Hydralazine HCl (Apresoline) 10 mg SLOW IVP Q4H PRN PRN Reason: SBP > 180 and HR < 70 Dextrose/Sodium Chloride (D5 1/2 Ns) 1,000 mls @ 250 mls/hr IV .Q4H PRN; Protocol PRN Reason: Step 4 of DKA Protocol Potassium Chloride/Dextrose/Sod Cl (D5 1/2 Ns W/20 Meq Kcl) 1,000 mls @ 250 mls /hr IV .Q4H PRN; Protocol PRN Reason: Step 4 of DKA Protocol Last Admin: 04/27/18 12:09 Dose: 1,000 mls Insulin Human Regular 100 (units/ Sodium Chloride) 101 mls @ 0 mls/hr IVPB INF [facility]; Protocol Last Admin: 04/28/18 09:38 Dose: 101 mls Sodium Chloride (Normal Saline 0.9%) 1,000 mls @ 500 mls/hr IV .Q2H PRN; Protocol PRN Reason: Step 1 of DKA Protocol Sodium Chloride (Normal Saline 0.9%) 1,000 mls @ 1,000 mls/hr IV .Q1H PRN; Protocol PRN Reason: Step 1 of DKA Protocol Sodium Chloride (Normal Saline 0.9%) 1,000 mls @ 250 mls/hr IV .Q4H PRN; Protocol PRN Reason: SEE STEP 3 OF DKA PROTOCOL Sodium Chloride (Normal Saline 0.9%) 1,000 mls @ 500 mls/hr IV .Q2H PRN; Protocol PRN Reason: Step 2 of DKA Protocol Potassium Chloride/Sodium Chloride (Ns 0.9% W/ 20 Meq Kcl) 1,000 mls @ 500 mls/ hr IV .Q2H PRN; Protocol PRN Reason: Step 2 of DKA Protocol Last Admin: 04/28/18 02:24 Dose: 1,000 mls Potassium Chloride/Sodium Chloride (Ns 0.9% W/ 20 Meq Kcl) 1,000 mls @ 250 mls/ hr IV .Q4H PRN; Protocol PRN Reason: SEE STEP 3 OF DKA PROTOCOL Last Admin: 04/27/18 08:59 Dose: 1,000 mls Potassium Chloride 40 meq/ (Sodium Chloride) 270 mls @ 135 mls/hr IVPB ASDIR PRN PRN Reason: FOR SERUM K+ 2.5 - 3.5 Potassium Chloride 40 meq/ (Device) 100 mls @ 50 mls/hr IVPB ASDIR PRN PRN Reason: FOR SERUM K+ 2.5 - 3.5 Magnesium Sulfate 1 gm/ Sodium (Chloride) 102 mls @ 102 mls/hr IV PRN PRN PRN Reason: MAG LEVEL 1.4 - 2.0 Magnesium Sulfate 2 gm/ Device 100 mls @ 100 mls/hr IVPB ASDIR PRN PRN Reason: MAGNESIUM < 1.4 Potassium Phosphate 9 mmol/ (Sodium Chloride) 103 mls @ 25.75 mls/hr IVPB ASDIR PRN PRN Reason: Phosphate 1.0-1.8 Last Admin: 04/27/18 12:09 Dose: 103 mls Potassium Phosphate 12 mmol/ (Sodium Chloride) 254 mls @ 63.5 mls/hr IV ASDIR PRN PRN Reason: Serum phosphate 0.5-0.9 Potassium Phosphate 15 mmol/ (Sodium Chloride) 255 mls @ 63.75 mls/hr IV ASDIR PRN PRN Reason: Serum Phos < 0.5 Sodium Chloride (Normal Saline 0.9%) 1,000 mls @ 75 mls/hr IV .[id number] [facility] Last Admin: 04/28/18 21:46 Dose: 1,000 mls Insulin Glargine 20 units/ (Miscellaneous Medication) 0.2 mls @ 0 mls/hr [facility] Last Admin: 04/29/18 08:51 Dose: 0.2 mls Dextrose/Water (D5w) 1,000 mls @ 0 mls/hr IV .Q0M PRN PRN Reason: Hypoglycemia Insulin Glargine 20 units/ (Miscellaneous Medication) 0.2 mls @ 0 mls/hr SC [facility] Insulin Human Lispro (Humalog) 0 units SC .AGGRESSIVE SLIDING PRN PRN Reason: Aggressive Correctional Scale Last Admin: 04/29/18 11:02 Dose: 13 units Insulin Human Lispro (Humalog) 0 units SC .BEDTIME SLIDING SC PRN PRN Reason: Bedtime Correctional Scale Levothyroxine Sodium (Synthroid) 25 mcg PO 0600 [facility] Last Admin: 04/29/18 05:36 Dose: 25 mcg Magnesium Oxide (Magnesium Oxide) 400 mg PO BIDPRN PRN PRN Reason: FOR SERUM MAG 1.4 - 2.0 Magnesium Oxide (Magnesium Oxide) 800 mg PO PRN PRN PRN Reason: FOR SERUM MAG < 1.4 Miscellaneous Medication (Ccu Electrolyte Replacement) 1 each IVPB ONE [facility] Stop: 05/26/18 21:38 Miscellaneous Medication (Phos-Nak) 1 pkt PO TIDPRN PRN PRN Reason: FOR PHOS LEVEL 1.0 - 1.8 Miscellaneous Medication (Phos-Nak) 2 pkt PO TIDPRN PRN PRN Reason: FOR PHOS LEVEL 0.5 - 1.0 Ccu Electrolyte (Replacement Protocol) 0 each FS PRN PRN PRN Reason: FOR ELECTROLYTE REPLACEMENT Nystatin (Mycostatin Powder) 1 gm TOP BID PRN PRN Reason: Topical Irritations Ondansetron HCl (Zofran Odt) 4 mg PO Q6H PRN PRN Reason: Nausea/Vomiting Ondansetron HCl (Zofran) 4 mg IVP Q6H PRN PRN Reason: Nausea/Vomiting Last Admin: 04/28/18 03:57 Dose: 4 mg Potassium Chloride (K-Dur) 40 meq PO ASDIR PRN PRN Reason: FOR SERUM K+ 2.5 - 3.5 Last Admin: 04/27/18 16:31 Dose: 40 meq Potassium Chloride (Klor-Con) 40 meq PER TUBE ASDIR PRN PRN Reason: FOR SERUM K+ 2.5-3.5 Sodium Chloride (Flush - Normal Saline) 10 ml IVF Q12HR [facility] Last Admin: 04/29/18 08:52 Dose: 10 ml Sodium Chloride (Flush - Normal Saline) 10 ml IVF PRN PRN PRN Reason: Saline Flush
--- NOTE | 2018-04-29 19:01 | PRG ---
DATE OF SERVICE: SUBJECTIVE: The patient is seen and examined. Noted with the following vital signs. OBJECTIVE: VITAL SIGNS: Afebrile, temperature 97.7, pulse 107, respiratory rate of 20, O2 saturation of 99%, blood pressure 138/71. HEENT: Unremarkable. CARDIOVASCULAR SYSTEM: First and second heart sounds were heard. RESPIRATORY SYSTEM: Clear to auscultation. DIGESTIVE SYSTEM: Revealed obese abdomen. EXTREMITIES: Showed chronic lymph edema. LABORATORY INVESTIGATION: Significant for potassium of 3.1, blood sugar in the 400 range. IMPRESSION: 1. Severe hyperglycemia in the context of hyperosmolar nonketotic hyperglycemic state. 2. Morbid obesity. 3. Acute on chronic kidney disease. 4. Hypokalemia. PLAN: 1. Change the patient IV fluid to potassium containing IV fluid. 2. Continue renal supportive measures. 3. We will increase the patient's insulin as the patient obviously was not on insulin. 4. Further management to be dependent on the clinical course. Job ID: [id number]
[2018-04-29] MEDS: Sodium Chloride 0.9% 1,000 ML IV SCH (20:38)
[2018-04-29] MEDS: Famotidine/PF 20 mg/2ml Vial SLOW IVP SCH (20:39)
[2018-04-29] MEDS ORDERED: Insulin Glargine 20 UNITS in Pre-Filled Syringe 1 EACH SC SCH (21:00)
[2018-04-29] MEDS ORDERED: Insulin Glargine 30 UNITS in Pre-Filled Syringe SC SCH (21:00)
[2018-04-30 05:14] LABS: Anion Gap 29 mmol/L (10-20); BUN (Urea Nitrogen) 24 mg/dL (8.9-20.6); Calc. Creatinine Clearance 238 mL/min (70-130); Calcium 9.9 mg/dL (7.8-10.44); Carbon Dioxide 21 mmol/L (22-29); Chloride 93 mmol/L (98-107); Estimated GFR-MDRD 49; Glucose 415 mg/dL (70-105); Potassium 3.9 mmol/L (3.5-5.1); Sodium 139 mmol/L (136-145)
[2018-04-30] MEDS: Sodium Chloride 0.9% 1,000 ML IV SCH (05:24)
[2018-04-30] MEDS: Levothyroxine Sodium 25 MCG TAB PO SCH (05:27)
[2018-04-30] MEDS: HumaLOG 300 UNITS/3 ML VIAL SC PRN ×4 (05:29→21:10)
[2018-04-30] MEDS ORDERED: Insulin Glargine 45 UNITS in Pre-Filled Syringe 1 EACH SC SCH (09:00)
[2018-04-30] MEDS ORDERED: Insulin Glargine 30 UNITS in Pre-Filled Syringe SC SCH (09:00)
[2018-04-30] MEDS: Enoxaparin Sodium 30 MG/0.3 ML SYRINGE SC SCH (09:12)
[2018-04-30] MEDS: busPIRone HCl 10 MG TAB PO SCH ×2 (09:12→21:09)
[2018-04-30] MEDS: FLUoxetine HCl 20 MG CAP PO SCH (09:12)
[2018-04-30] MEDS: Acetaminophen 500 MG TAB PO PRN (11:06)
--- NOTE | 2018-04-30 14:58 | PDOC.PN ---
- Subjective Encounter Start Date: 04/30/18 Encounter Start Time: 13:15 Mr. Fulton was seen today in follow-up of DKA. He is very sleepy at time, but when persistent with him he will awake up and answer questions. He does not have any new complaints - Objective Resuscitation Status - Order Detail: 04/26/18 17:57 Resuscitation Status Routine Resuscitation Status: FULL: Full Resuscitation MAR Reviewed: Yes Vital Signs & Weight: Vital Signs (12 hours) Temp Pulse Resp BP BP Pulse Ox 04/30/18 08:00 97 04/30/18 07:31 97.9 F 101 H 16 176/106 H 97 04/30/18 05:29 104 H 194/106 H 04/30/18 04:24 97.4 F L 104 H 17 99 Weight Weight 679 lb 7.434 oz Most Recent Monitor Data Heart Rate from ECG 109 NIBP 100/84 NIBP BP-Mean 89 Respiration from ECG 19 SpO2 93 I&O: 04/29/18 04/30/18 05/01/18 06:59 06:59 06:59 Intake Total 7384 3071 1440 Output Total 4050 1400 875 Balance 3334 1671 565 Result Diagrams: 04/28/18 06:09 04/30/18 04:35 Additional Labs: Accuchecks 04/30/18 04/30/18 04/29/18 10:33 05:29 20:12 POC Glucose 336 H 374 H 449 H 04/29/18 16:43 POC Glucose 423 H Phys Exam - Physical Examination HEENT: PERRLA Respiratory: no wheezing, no rales, no rhonchi, clear to auscultation bilateral Cardiovascular: RRR, no significant murmur, no rub Gastrointestinal: soft, non-tender, no distention, positive bowel sounds Musculoskeletal: no edema, pulses present Neurological: non-focal, moves all 4 limbs Psychiatric: normal affect, A&O x 3 Dx/Plan (1) DKA (diabetic ketoacidoses) Code(s): E13.10 - OTH DIABETES MELLITUS WITH KETOACIDOSIS WITHOUT COMA Status : Resolved Qualifiers: Diabetes mellitus type: type 2 (2) Morbid obesity with BMI of 50.0-59.9, adult Code(s): E66.01 - MORBID (SEVERE) OBESITY DUE TO EXCESS CALORIES; Z68.43 - BODY MASS INDEX (BMI) 50-59.9, ADULT Status: Chronic (3) HTN (hypertension) Code(s): I10 - ESSENTIAL (PRIMARY) HYPERTENSION Status: Chronic Comment: controlled - Plan * DKA- resolved * DM- still poorly controlled- will continue to titrate is dose of insulin * Acute kidney injury- improved- creatinine is 1.94 down from 3.53 * HTN- blood pressure is poorly controlled- will add Clonidine * He can be moved out of the [facility] .
--- NOTE | 2018-04-30 18:10 | PRG ---
DATE OF SERVICE: 04/30/2018 SUBJECTIVE: The patient is seen and examined. Noted with the following vital signs. OBJECTIVE: VITAL SIGNS: Afebrile, temperature 97.9, pulse 101, respiratory rate of 16, O2 saturation 97%, and blood pressure 176/106. HEENT: Unremarkable. CARDIOVASCULAR SYSTEM: First and second heart sounds were heard. RESPIRATORY SYSTEM: Clear to auscultation. DIGESTIVE SYSTEM: Revealed a benign abdomen. Positive bowel sounds. EXTREMITIES: No peripheral edema. SKIN: No new gross rash. LYMPHATICS: No peripheral lymphadenopathy. LABORATORY INVESTIGATION: Significant for creatinine down to 1.94, BUN of 24, and blood sugar in the 400 range. IMPRESSION: 1. Acute on chronic kidney disease, improving. 2. Severe hyperglycemia, suboptimally controlled. 3. Severe morbid obesity. PLAN: 1. Increase the patient's Levemir to 45 units in the morning and 40 units at night and continue sliding scale. 2. Further management will be dependent on the clinical course. Job ID: [id number]
[2018-04-30] MEDS ORDERED: Insulin Glargine 40 UNITS in Pre-Filled Syringe 1 EACH SC SCH (21:00)
[2018-04-30] MEDS ORDERED: Insulin Glargine 50 UNITS in Pre-Filled Syringe SC SCH (21:00)
[2018-04-30] MEDS: cloNIDine 0.1 MG TAB PO SCH (21:09)
[2018-04-30] MEDS: Ondansetron PF 4 MG/2 ML Vial IVP PRN (21:17)
[2018-05-01] MEDS: HumaLOG 300 UNITS/3 ML VIAL SC PRN ×4 (05:25→20:43)
[2018-05-01] MEDS: Levothyroxine Sodium 25 MCG TAB PO SCH (05:25)
[2018-05-01 06:48] LABS: Anion Gap 25 mmol/L (10-20); BUN (Urea Nitrogen) 19 mg/dL (8.9-20.6); Calc. Creatinine Clearance 275 mL/min (70-130); Calcium 10.1 mg/dL (7.8-10.44); Carbon Dioxide 24 mmol/L (22-29); Chloride 93 mmol/L (98-107); Estimated GFR-MDRD 58; Glucose 367 mg/dL (70-105); Potassium 3.5 mmol/L (3.5-5.1); Sodium 138 mmol/L (136-145)
[2018-05-01] MEDS: Enoxaparin Sodium 30 MG/0.3 ML SYRINGE SC SCH (08:47)
[2018-05-01] MEDS: FLUoxetine HCl 20 MG CAP PO SCH (08:52)
[2018-05-01] MEDS: busPIRone HCl 10 MG TAB PO SCH ×2 (08:52→20:42)
[2018-05-01] MEDS: cloNIDine 0.1 MG TAB PO SCH ×2 (08:53→14:24)
[2018-05-01] MEDS ORDERED: Insulin Glargine 50 UNITS in Pre-Filled Syringe SC SCH (09:00)
[2018-05-01 09:16] LABS: Mean Corpuscular HGB CONC 31.7 g/dL (32.0-36.0); Mean Corpuscular Hemoglobin 29.5 pg (27.0-31.0); Mean Corpuscular Volume 92.8 fL (78.0-98.0); Mean Platelet Volume 11.4 fL (7.4-10.4); Platelet Count 241 thou/uL (130-400); RBC Distribution Width 12.8 % (11.5-14.5); Red Blood Cell (RBC) Count 4.77 mill/uL (4.70-6.10); White Blood Cell (WBC) Count 9.4 thou/uL (4.8-10.8)
[2018-05-01 09:53] LABS: Band 6 % (5-11); Lymphocytes 12 % (21-51); MDiff Complete? YES; Monocytes 17 % (0-10); Myelocyte 1 % (0-0); Neutrophil 64 % (42-75); RBC Morphology Normal
[2018-05-01] MEDS: Acetaminophen 500 MG TAB PO PRN ×2 (14:25→20:42)
--- NOTE | 2018-05-01 16:41 | PDOC.PN ---
- Subjective Encounter Start Date: 05/01/18 Encounter Start Time: 14:35 Mr. Fulton was seen today in follow-up of uncontrolled diabetes mellitus. He does not have any complaints. He continues to ask for additional food. - Objective Resuscitation Status - Order Detail: 04/26/18 17:57 Resuscitation Status Routine Resuscitation Status: FULL: Full Resuscitation MAR Reviewed: Yes Vital Signs & Weight: Vital Signs (12 hours) Temp Pulse Resp BP BP Pulse Ox 05/01/18 14:24 163/78 H 05/01/18 08:53 163/109 H 05/01/18 07:20 97.9 F 118 H 18 163/109 H 97 05/01/18 04:50 97.8 F 106 H 18 134/89 97 Weight Weight 679 lb 7.434 oz Most Recent Monitor Data Heart Rate from ECG 109 NIBP 100/84 NIBP BP-Mean 89 Respiration from ECG 19 SpO2 93 I&O: 04/30/18 05/01/18 05/02/18 06:59 06:59 06:59 Intake Total 3071 4075 980 Output Total 1400 1600 1200 Balance 1671 2475 -220 Result Diagrams: 05/01/18 06:10 05/01/18 06:10 Additional Labs: Accuchecks 05/01/18 05/01/18 05/01/18 15:47 11:26 04:05 POC Glucose 398 H 421 H 342 H 04/30/18 19:52 POC Glucose 390 H Phys Exam - Physical Examination HEENT: PERRLA Respiratory: no wheezing, no rales, no rhonchi, clear to auscultation bilateral Cardiovascular: RRR, no significant murmur, no rub Gastrointestinal: soft, non-tender, no distention, positive bowel sounds Musculoskeletal: no edema, pulses present Dx/Plan (1) DKA (diabetic ketoacidoses) Code(s): E13.10 - OTH DIABETES MELLITUS WITH KETOACIDOSIS WITHOUT COMA Status : Resolved Qualifiers: Diabetes mellitus type: type 2 (2) HTN (hypertension) Code(s): I10 - ESSENTIAL (PRIMARY) HYPERTENSION Status: Chronic Comment: controlled (3) Morbid obesity with BMI of 70 and over, adult Code(s): E66.01 - MORBID (SEVERE) OBESITY DUE TO EXCESS CALORIES; Z68.45 - BODY MASS INDEX (BMI) 70 OR GREATER, ADULT Status: Acute Comment: BMI is 92.2 - Plan * DM- his blood glucose continues to be elevated- will continue to titrate his insulin dose, and will add a short acting insulin as well * Severe Life threatening Obesity- this has left him almost bed bound, and complicates his management * HTN- his blood glucose is still quite elevated- will titrate Clonidine * Back to the NH when his blood glucose is better controlled.
[2018-05-01] MEDS: HumaLOG 300 UNITS/3 ML VIAL SC SCH (16:50)
--- NOTE | 2018-05-01 20:36 | PRG ---
DATE OF SERVICE: 05/01/2018 SUBJECTIVE: The patient is seen and examined. Noted with the following vital signs. OBJECTIVE: VITAL SIGNS: Afebrile, temperature 97.9, pulse 118, respiratory rate of 18, O2 saturations 97%, and blood pressure 165/109. HEENT: Unremarkable. Moist oral mucosa. No conjunctival injection or icterus. NECK: Supple. CARDIOVASCULAR SYSTEM: First and second heart sounds were heard. RESPIRATORY SYSTEM: Clear to auscultation. DIGESTIVE SYSTEM: Revealed a benign abdomen. EXTREMITIES: No peripheral edema. SKIN: No new gross rash. LYMPHATICS: No peripheral lymphadenopathy. IMPRESSION: 1. Acute on chronic kidney disease, which seems to be improving. 2. Morbid obesity. 3. Diabetes mellitus, poorly controlled. PLAN: 1. We will continue current renal supportive measures. 2. Further management to be dependent on the clinical course. 3. The insulin needs to be adjusted to reflect the severe hyperglycemia in this patient. Job ID: [id number]
[2018-05-01] MEDS: cloNIDine 0.2 MG TAB PO SCH (20:42)
[2018-05-01] MEDS ORDERED: Insulin Glargine 65 UNITS in Pre-Filled Syringe SC SCH (21:00)
[2018-05-02] MEDS: Levothyroxine Sodium 25 MCG TAB PO SCH (05:49)
[2018-05-02] MEDS: HumaLOG 300 UNITS/3 ML VIAL SC PRN ×4 (05:50→21:12)
[2018-05-02] MEDS: Enoxaparin Sodium 30 MG/0.3 ML SYRINGE SC SCH (08:29)
[2018-05-02] MEDS: cloNIDine 0.2 MG TAB PO SCH ×3 (08:29→21:04)
[2018-05-02] MEDS: busPIRone HCl 10 MG TAB PO SCH ×2 (08:30→21:04)
[2018-05-02] MEDS: FLUoxetine HCl 20 MG CAP PO SCH (08:30)
[2018-05-02] MEDS: HumaLOG 300 UNITS/3 ML VIAL SC SCH ×3 (08:30→17:44)
[2018-05-02] MEDS ORDERED: Insulin Glargine 65 UNITS in Pre-Filled Syringe SC SCH (09:00)
[2018-05-02] MEDS ORDERED: Insulin Glargine 75 UNITS in Pre-Filled Syringe 1 EACH SC SCH (09:00)
[2018-05-02 09:12] LABS: Anion Gap 23 mmol/L (10-20); BUN (Urea Nitrogen) 14 mg/dL (8.9-20.6); Calc. Creatinine Clearance 314 mL/min (70-130); Calcium 10.3 mg/dL (7.8-10.44); Carbon Dioxide 26 mmol/L (22-29); Chloride 96 mmol/L (98-107); Estimated GFR-MDRD 67; Glucose 280 mg/dL (70-105); Potassium 3.4 mmol/L (3.5-5.1); Sodium 142 mmol/L (136-145)
[2018-05-02 10:11] LABS: Hemoglobin 14.7 g/dL (14.0-18.0); Mean Corpuscular HGB CONC 32.4 g/dL (32.0-36.0); Mean Corpuscular Hemoglobin 30.2 pg (27.0-31.0); Mean Corpuscular Volume 93.1 fL (78.0-98.0); Platelet Count 251 thou/uL (130-400); RBC Distribution Width 12.6 % (11.5-14.5); Red Blood Cell (RBC) Count 4.87 mill/uL (4.70-6.10); White Blood Cell (WBC) Count 6.8 thou/uL (4.8-10.8)
[2018-05-02 10:14] LABS: Band 6 % (5-11); Eosinophils 3 % (0-10); Lymphocytes 17 % (21-51); MDiff Complete? YES; Monocytes 11 % (0-10); Neutrophil 63 % (42-75); RBC Morphology Normal
[2018-05-02] MEDS: Insulin Glargine 75 UNITS in Pre-Filled Syringe 1 EACH SC SCH ×2 (10:21→21:04)
--- NOTE | 2018-05-02 16:30 | PDOC.PN ---
- Subjective Encounter Start Date: 05/02/18 Encounter Start Time: 14:35 Mr. Fulton was seen today in follow -up of uncontrolled DM. He does not have any complaints today - Objective Resuscitation Status - Order Detail: 04/26/18 17:57 Resuscitation Status Routine Resuscitation Status: FULL: Full Resuscitation MAR Reviewed: Yes Vital Signs & Weight: Vital Signs (12 hours) Temp Pulse Resp BP BP Pulse Ox 05/02/18 16:23 98.2 F 97 18 171/105 H 92 L 05/02/18 14:33 129/74 05/02/18 11:30 98.7 F 94 20 174/116 H 97 05/02/18 08:29 162/80 H 05/02/18 07:22 98.0 F 97 18 162/80 H 98 Weight Weight 679 lb 7.434 oz Most Recent Monitor Data Heart Rate from ECG 109 NIBP 100/84 NIBP BP-Mean 89 Respiration from ECG 19 SpO2 93 I&O: 05/01/18 05/02/18 05/03/18 06:59 06:59 06:59 Intake Total 4075 4290 1500 Output Total 1600 2175 450 Balance 2475 2115 1050 Result Diagrams: 05/02/18 08:05 05/02/18 08:05 Additional Labs: Accuchecks 05/02/18 05/02/18 05/01/18 11:34 04:10 20:17 POC Glucose 348 H 365 H 325 H 05/01/18 15:47 POC Glucose 398 H Phys Exam - Physical Examination HEENT: PERRLA Respiratory: no wheezing, no rales, no rhonchi, clear to auscultation bilateral Cardiovascular: RRR, no significant murmur, no rub Gastrointestinal: soft, non-tender, no distention, positive bowel sounds Musculoskeletal: no edema Dx/Plan (1) DKA (diabetic ketoacidoses) Code(s): E13.10 - OTH DIABETES MELLITUS WITH KETOACIDOSIS WITHOUT COMA Status : Resolved Qualifiers: Diabetes mellitus type: type 2 (2) HTN (hypertension) Code(s): I10 - ESSENTIAL (PRIMARY) HYPERTENSION Status: Chronic Comment: controlled (3) Morbid obesity with BMI of 70 and over, adult Code(s): E66.01 - MORBID (SEVERE) OBESITY DUE TO EXCESS CALORIES; Z68.45 - BODY MASS INDEX (BMI) 70 OR GREATER, ADULT Status: Acute Comment: BMI is 92.2 - Plan * DM- his blood glucose continues around 300- will continue to titrate his dose of insulin * HTN- blood pressure is elevated, but overall trending down * Will re-evaluate in the AM
--- NOTE | 2018-05-02 19:04 | PRG ---
DATE OF SERVICE: 05/02/2018 SUBJECTIVE: The patient is noted with the following vital signs. OBJECTIVE: VITAL SIGNS: Afebrile temperature 98.2, pulse 97, respiratory rate of 18, O2 saturations are 92%, blood pressure 171/105. HEENT: Examination unremarkable. CARDIOVASCULAR SYSTEM: First and second heart sounds were heard. RESPIRATORY: Clear to auscultation. DIGESTIVE SYSTEM: Revealed an obese abdomen. EXTREMITIES: Showed chronic lymphedema. NEUROLOGIC: Alert. No lateralizing signs. LABORATORY INVESTIGATION: Creatinine down to 1.47. Potassium 3.4. Blood sugar down to 200 range. IMPRESSION: 1. Morbid obesity. 2. Acute on chronic kidney disease, improved. 3. Diabetes mellitus type 2, uncontrolled. PLAN: 1. Continue current renal supportive measures. 2. Discontinue daily blood draws to avoid iatrogenic anemia. 3. Further management to be dependent on the clinical course. Job ID: [id number]
[2018-05-03] MEDS: Levothyroxine Sodium 25 MCG TAB PO SCH (04:21)
[2018-05-03] MEDS: HumaLOG 300 UNITS/3 ML VIAL SC PRN ×3 (04:34→17:01)
[2018-05-03] MEDS: Insulin Glargine 75 UNITS in Pre-Filled Syringe 1 EACH SC SCH (07:37)
[2018-05-03] MEDS: cloNIDine 0.2 MG TAB PO SCH ×2 (07:38→15:38)
[2018-05-03] MEDS: FLUoxetine HCl 20 MG CAP PO SCH (07:38)
[2018-05-03] MEDS: busPIRone HCl 10 MG TAB PO SCH (07:38)
[2018-05-03] MEDS: HumaLOG 300 UNITS/3 ML VIAL SC SCH ×3 (07:39→17:01)
[2018-05-03] MEDS: Enoxaparin Sodium 30 MG/0.3 ML SYRINGE SC SCH (07:39)
[2018-05-03 07:46] LABS: Anion Gap 19 mmol/L (10-20); BUN (Urea Nitrogen) 9 mg/dL (8.9-20.6); Calc. Creatinine Clearance 432 mL/min (70-130); Calcium 9.4 mg/dL (7.8-10.44); Carbon Dioxide 26 mmol/L (22-29); Chloride 96 mmol/L (98-107); Estimated GFR-MDRD Greater than 90; Glucose 238 mg/dL (70-105); Potassium 3.3 mmol/L (3.5-5.1); Sodium 138 mmol/L (136-145)
[2018-05-03] MEDS ORDERED: Potassium Chloride 20 MEQ TAB PO SCH (11:45)
[2018-05-03 17:03] VITALS: BP 147/85; TEMP 98.7
--- NOTE | 2018-05-04 06:35 | DIS ---
DATE OF ADMISSION: 04/26/2018 DATE OF DISCHARGE: 05/03/2018 DISCHARGE DISPOSITION: Back to the [place] [facility]. DISCHARGE DIAGNOSES: 1. Diabetic ketoacidosis. 2. Hypertension, poorly controlled. 3. Severe life-threatening morbid obesity with a BMI of 92.2. The patient is 6 feet and 679 pounds. 4. Severe deconditioning with nonambulatory status. 5. Chronic venous stasis disease. DISCHARGE MEDICATIONS: Include; 1. Lantus insulin 75 units twice a day. 2. Humalog insulin 5 units 3 times a day with meals. 3. Metolazone was changed from daily to p.r.n. 4. Continue fluoxetine 20 mg daily. 5. Clonidine 0.2 mg 3 times a day. 6. Aldactone 50 mg daily. 7. Potassium chloride 20 mEq twice a day. 8. Magnesium oxide 400 mg twice a day. 9. Synthroid 25 mcg daily. 10. Lasix 60 mg twice a day. 11. Colace 100 mg daily. 12. BuSpar 10 mg twice daily. 13. Extra-strength Tylenol twice a day as needed. CODE STATUS: Full code. ALLERGIES: NO KNOWN DRUG ALLERGIES. HOSPITAL COURSE: Mr. Fulton is a pleasant 33-year-old gentleman, who presented to the emergency room with complaints of nausea, vomiting, and abdominal pain. He was found to have a blood glucose over 1000. He was also acidotic. He was admitted for severe DKA, started on an insulin drip, and the DKA was corrected. He spent the next several days in the hospital titrating his insulin dose such that he was discharged with a safe blood glucose level, this was in the mid 200s. Continued titration can be done in the outpatient environment. He also had extremely elevated blood pressures with the systolics starting around the 180s and diastolics over 100. At the time of discharge, his blood pressure was actually 123/80. This was with the addition of clonidine at 0.2 mg 3 times a day. Hopefully, he can be compliant with the medications since he is in the [facility] [facility] setting. Now, that his blood pressures are improved as well as his diabetes, he will be discharged back to the [facility] [facility]. He was also seen by the dietitian during this hospital stay for calorie-restricted diet. Job ID: [id number]
== END 2018-05-03 18:21 | DRG 638 ==
LOC: ERS 15:35 → CCU 20:58 → IMCU/EMU 04-27 13:42 → T4-A 04-30 15:32
PROVIDERS: ADMIT Family Medicine; ATTEND Family Medicine
DX: E11.10 Type 2 diabetes mellitus with ketoacidosis without coma (principal); N17.9 Acute kidney failure, unspecified; E87.1 Hypo-osmolality and hyponatremia; Z68.45 Body mass index [BMI] 70 or greater, adult; E66.01 Morbid (severe) obesity due to excess calories; D64.9 Anemia, unspecified; I87.8 Other specified disorders of veins; E86.0 Dehydration; E11.65 Type 2 diabetes mellitus with hyperglycemia; E87.6 Hypokalemia; E11.00 Type 2 diabetes mellitus with hyperosmolarity without nonketotic hyperglycemic-hyperosmolar coma (NKHHC); E11.22 Type 2 diabetes mellitus with diabetic chronic kidney disease; I12.9 Hypertensive chronic kidney disease with stage 1 through stage 4 chronic kidney disease, or unspecified chronic kidney disease; N18.9 Chronic kidney disease, unspecified; Z83.3 Family history of diabetes mellitus
CPT/HCPCS: 36415; 36416; 71045; 80048; 82010; 82330; 82803; 82805; 83036; 83605; 83735; 83930; 84100; 84484; 85014; 85025; 87040; 87086; 90471; 90686; 90732; 96361; 96365; 96366; G0008; G0009; G8978-GP-CN; G8979-GP-CN; G8980-GP-CN; G8987-GO-CN; G8988-GO-CN; G8989-GO-CN; J0360; J1650; J1815; J2405; J3480; J7050; S0028